=== PATIENT | female | born 1955 | race Caucasian/White ===

== ENCOUNTER 2021-01-29 07:09 | Day surgery (SDC) | payer OTHER ==
[2021-01-24 09:54] LABS: Absolute Lymphocytes (CBC) 2.8 K/uL (0.7-4.9); Hematocrit 39.5 % (36.0-45.0); Lymphocytes % 43.1 % (15.3-44.8); RBC Red Blood Cell Count 4.52 M/uL (3.86-4.86)
[2021-01-24 09:56] LABS: Urine Appearance CLOUDY (Clear); Urine Bilirubin NEGATIVE (Negative); Urine Blood TRACE (Negative); Urine Color YELLOW (Yellow); Urine Glucose NEGATIVE (Negative); Urine Protein NEGATIVE (Negative); Urine Urobilinogen 0.2 mg/dL (0.2-1.0)
[2021-01-24 09:58] LABS: Protime INR 1.06
[2021-01-24 10:07] LABS: Potassium 3.9 mmol/L (3.5-5.1)
[2021-01-24 10:07] LABS: Urine Microscopic Reflex ORDER UMIC
[2021-01-24 10:30] LABS: Urine Bacteria >50 /HPF (<20); Urine Mucus LIGHT /HPF (NONE SEEN); Urine RBC <5 /HPF (NONE SEEN)
[2021-01-29] MEDS ORDERED: LIDOCAINE 1% W/EPI 1:100,000 MDV 20 ML VIAL ONE (07:37)
[2021-01-29] MEDS ORDERED: NA CHLORIDE 0.9% 100 ML IV ONE (07:37)
[2021-01-29] MEDS ORDERED: Ringers Lactate 1,000 ML IV ONE ×2 (07:39→10:51)
[2021-01-29] MEDS ORDERED: SCOPOLAMINE HYDROBROMIDE PATCH TD ONE (07:42)
[2021-01-29] MEDS ORDERED: ROCURONIUM 50 MG/5 ML VIAL IV ONE (07:58)
[2021-01-29] MEDS ORDERED: dexAMETHasone 10 MG/ML VIAL ONE (07:58)
[2021-01-29] MEDS ORDERED: propofoL 200 MG/20 ML VIAL IV ONE (07:58)
[2021-01-29] MEDS ORDERED: FENTANYL CITR 100 MCG/2 ML ONE ×3 (07:58→15:15)
[2021-01-29] MEDS ORDERED: MIDAZOLAM HCL 2 MG/2 ML INJ ONE (07:59)
[2021-01-29] MEDS ORDERED: LIDOCAINE 2% MPF 5 ML VIAL ONE (07:59)
[2021-01-29] MEDS ORDERED: ONDANSETRON 4 MG/2 ML VIAL ONE (07:59)
[2021-01-29] MEDS ORDERED: KETOROLAC 30 MG/ML INJ ONE (07:59)
[2021-01-29] MEDS: CEFAZOLIN/SWI 2gm 2 GM/20 ML SYR ONE ×2 (08:19→08:36)
[2021-01-29] MEDS ORDERED: CELECOXIB 100 MG CAPSULE ONE (08:26)
[2021-01-29] MEDS ORDERED: ACETAMINOPHEN 500 MG TAB ONE (08:26)
[2021-01-29] MEDS: BUPIVACAINE 0.25% PF 30 ML VIAL ONE ×2 (08:36→09:12)
[2021-01-29] MEDS ORDERED: NS 0.9% VIAL 10 ML ONE ×2 (10:03→10:06)
[2021-01-29] MEDS ORDERED: VECURONIUM 10 MG/VIAL IV ONE (10:03)
[2021-01-29] MEDS ORDERED: CEFAZOLIN SODIUM 1 GM/VIAL ONE ×3 (10:06→13:43)
[2021-01-29] MEDS: VASOPRESSIN 20 UNIT/ML VIAL ONE ×2 (12:33→14:00)
[2021-01-29] MEDS ORDERED: PROMETHAZINE INJ 25 MG/ML AMP IV PRN (15:18)
[2021-01-29] MEDS ORDERED: MORPHINE 2 MG/ML SYR IV PRN (15:18)
--- NOTE | 2021-01-29 15:31 | P.BOP ---
Preoperative diagnosis: stage 3 anterior wall prolapse, uterine prolapse, post wall defect Postoperative diagnosis: occult MARY Primary procedure: TLH BSO Laparoscopy Sacralcolpopexy KAL posterior repair TVT- O Hand Singer: Kelly young Estimated blood loss: min Specimen: uterus tubes and ovaries Findings: 0/+2/0/5/mod/7/-1/-1/-3, sigmoid and omental adhesions Anesthesia: General Complications: None Drain(s): Urinary catheter Implants: Upsylon Y mesh, TVT-O Transferred to: Recovery Room Condition: Good
[2021-01-29] MEDS ORDERED: GLYCOPYRROLATE 0.2 MG/ML SYR ONE (15:36)
[2021-01-29] MEDS ORDERED: NEOSTIGMINE 1 MG/ML -5 ML ONE (15:40)
[2021-01-29] MEDS: Ringers Lactate 1,000 ML IV SCH (18:00)
[2021-01-29 18:02] VITALS: O2SAT 98
[2021-01-30] MEDS: Ringers Lactate 1,000 ML IV SCH ×2 (02:00→08:00)
[2021-01-30] MEDS: HYDROCODONE/APAP 5/325 MG TAB PO PRN ×2 (06:10→11:22)
[2021-01-30 12:20] VITALS: BP 126/75; TEMP 98.6
--- NOTE | 2021-02-18 10:06 | OP ---
Date of Procedure: 01/29/2021 Surgeon: Rachael Mills MD Shelter Advocate: For the hysterectomy, the transportation assistant was Aurora Shirley. For the sacrocolpopexy, the assi stant was Dr. Cristhian Mendoza. Intraoperative consultations for Dr. Mendoza. Please refer to his note. Preoperative Diagnoses: Stage III anterior wall prolapse, uterine prolapse, and posterior wall defec ts, occult stress urinary incontinence. Postoperative Diagnoses: Stage III anterior wall prolapse, uterine prolapse, and posterior wall defe cts, occult stress urinary incontinence. Procedures Performed: Total laparoscopic hysterectomy, bilateral salpingo-oophorectomy, laparoscopic sacrocolpopexy using a Y-Mesh, lysis of adhesions which took about 20 minutes, posterior repair, TVT -O (mid urethral sling), cystoscopy. Estimated Blood Loss: Minimal. Specimens: Uterus, tubes, and ovaries. Anesthesia: General endotracheal. Complications: No complications. Drains: Garcia catheter. Implants: Upsylon Y-Mesh and TVT-O. Findings: Pop-Q was 0, +2, 0, 5, moderate 7, -1, -1, -3. There were significant sigmoid and omental adhesions that had to be taken with extra time spent, which is the 20 minutes. Disposition: The patient was transferred to the recovery room in good condition. Procedure In Detail: After informed consent was verified, after the patient was understood all of he r alternatives for treatment including pessary, vaginal repair and connective tissue, vaginal repair with biologic graft augmentation and a mesh augmented laparoscopic repair. She understood both the b enefits and risks and complications, recovery and long-term recurrences. She chose to have a procedu re that had at least recurrence in the longer term fully understanding the difference between the charity geries. She was consented and brought to the OR. 2 g of Ancef were given. She was taken back to [facility] OR after consenting. She was placed in a supine fashion on the operating table. General anesthesia was given. She was pl aced in dorsal lithotomy position. Arms were tucked by the side. Positioning was checked and SCDs w ere started and time-out. Pelvic exam under anesthesia was performed and is as dictated on the Pop-Q above. She needed a poste rior repair as well. Abdomen, vulva, vagina, and perineum prepped and draped in a sterile fashion. Garcia was placed to dr waldron the bladder and a large VCare was introduced into the uterus and fixed in place. This area was t hen draped. A Garcia was connected for retrograde filling. A 1 cm infraumbilical incision was made with the use of a scalpel. Fascia was incised, tagged with 0 Vicryl sutures. Peritoneum entered sharply. S-retractors were placed and Kamille introduced. After adequate insufflation, site of entry was checked and was unremarkable. Upper abdominal surface was unremarkable as well. However, omental adhesions were present to the anterior abdominal wall to the sidewall of the lower midline. Sigmoid adhesions were present to the left lateral wall, left tube an d ovary, and the posterior cul-de-sac and the peritoneum. A 5 and 8 left lower quadrant and right lo wer quadrant ports were placed under direct vision. Then, LigaSure was used to take down the adhesio ns systematically with push-spread technique, cutting as well as bipolar cautery with cutting. Once all the adhesions were taken down, then I had a space to insert the tendon suprapubic port and all th e pelvic sidewalls were well visualized and the pelvic anatomy was visualized. After placement of 10 port, tag on the sigmoid colon was placed with the help of a 3-0 Monocryl stitc h and pulled up through the left upper quadrant using a Chaitanya-Miguel Angel needle. Hysterectomy was started taking opening up the left mesosalpinx. IP ligament was isolated, cut, and dissection was performed to take down the ovary as well as mesosalpinx and the round ligament, broad ligament. Vessels were exposed. The anterior broad ligament was opened up to raise the bladder flap . The bladder was dissected inferiorly and the vaginal cuff was then posteriorly taken down with are a of the posterior cuff. Uterosacrals were not visible and not worthy of attachment of the apex to t hem for good support. On the opposite side, the dissection was performed isolating the IP and taking it down. Mesosalpinx, tubes, ovary were all dissected away from the sidewall and round ligament was taken down. Broad lig ament was taken down to the level of the anterior bladder flap, which was completed posteriorly. The peritoneum was incised circumferentially anteriorly. The vessels were visualized and on the right s larry isolated. Vessels were taken down with the help of the LigaSure and the cardinal ligaments whate felipe was left of them, and then a similar dissection on the opposite side was performed to take down t he vessels and the cardinal ligaments. Then, circumferential colpotomy was performed with monopolar hook blade. The specimen was removed through the vagina with excellent hemostasis at all sides and n o anatomical distortion of the ureters or their course or any other anatomy. The vaginal cuff was closed with the help of 0 Vicryl stitch on both ends and 2-0 V-Loc used to close in 2 layers the vaginal epithelium, subepithelium and connective tissue and the connective tissue of the posterior vaginal wall and anterior including the peritoneum. Once this was closed fully in 2 l marino then dissection of the anterior wall was started. The bladder was held with 2 atraumatic graspers and dissected sharply to create the space between the bladder and vaginal wall without entering the vesicovaginal space. Once at least 3.5 cm of the ante rior vaginal wall was well dissected and exposed, then attention was directed posteriorly. Posterior dissection was performed by picking up the peritoneum leaving at least 1.5 cm of the perito da closure at the level of the vaginal cuff. Then, vaginal dissection was performed as well as the perirectal fat was dissected away from the posterior vaginal wall. Once this was dissected down at least 7.5 cm, then laterally the peritoneum was incised to carry the incision from the right lateral aspect of the sacrum. The sacral promontory was identified, the peritoneum picked up. Once this was incised with the help of LigaSure and scissors, then the autonomic nerves were found. They were very thick and slightly ad herent in this area, not easily moved over to the left. was clearly identified. Then, th e bifurcation of the iliacs was identified keeping away from the right iliac artery and dissection wa s performed with a knot between the nerve and the vessel. Space was created. Dr. Mendoza helped with this part of procedure. After dissecting the nerves and carefully preserving them and bringing them over to the opposite side, then the peritoneum was incised all the way to connect to the posterior di ssection staying in the center between the sigmoid and lateral wall. Then once adequate space was cr eated and anterior longitudinal ligament was identified, this dissection was left alone. Attention was directed to the fascia of the mesh. The mesh was fashioned appropriately leaving at le ast 8 cm posterior wall and through the posterior segment and 6 cm of the anterior segment, then went on to attach the posterior graft distally with 2 Prolene sutures on both ends and then in the center with 2-0 V-Loc and 2 V-Loc sutures were placed in the proximal part of the posterior segment to lay the mesh flap. Two interrupted sutures were made. Then, the mesh was folded up and brought to the sacrum and tensioned appropriately by removing the ma nipulator and making sure that there was no excessive tension. The mesh was laid flat and ProTack wa s placed, 3 pins in a row and then folded over and 3 more pins. Once all the 6 verified, the excess mesh was trimmed. Attention was directed to the anterior wall. Anterior wall was tensioned appropriately and attached distally with 2-0 Prolene sutures. Sutures we re first placed in the distal most lateral aspect of the dissection without going through the vaginal epithelium. Then, the mesh arm was laid on top and attached. The Prolene sutures passed through th is to attach. Once these were tied down, central 2-0 V-Loc was placed in the distal part of the mesh arms. The mesh was trimmed that was excess and then 2 V-Loc sutures were placed at the proximal par t of the anterior wall as well to keep the mesh flat and positioned. There was at least a cm to cm a nd half of the space between the vaginal cuff and the crotch of the Y-Mesh. Once this was all completed, peritoneal closure was done with the help of 2-0 V-Loc in a continuous r unning locked fashion going from the sacrum all the way down to the bladder and to the right and then starting on the left and coming to the center and finishing it off. Thorough irrigation and suction were performed. No evidence of any electrical, mechanical, or therma l injury to the ureters. There was excellent hemostasis. No evidence of injury to the bowel either or the bladder. All the trocars were pulled out, released the bowel, injected the site with 0.25% Ma rcaine at entry and exit. Fascia was closed at the umbilicus and suprapubic area with 0 Vicryl sutur es and 4-0 Vicryl sutures for all skin closures. The patient was placed in Trendelenburg and was taken sling. Then, mid urethral, vaginal epithelium was picked up with the help of Allis clamps, injected with dilute vasopressin. A 1 cm inc ision was made in the mid urethral area. Dissection was carried to the ipsilateral obturator space h ugging the inferior pubic ramus at a 45-degree angle to the horizontal and vertical planes. Once thi s space was opened up with pulling opening the tongs and similar dissection was performed on both sides, then went on to place the wing guide and pass the plastic dilator with spike in it int o the obturator space turned around, hugging the inferior pubic ramus with dilator and the wing guide out and exited at 1 cm lateral to the groin fold and 2 cm above the line drawn at the level of the e xternal meatus avoiding the adductor tendon. Similar spike was passed on the opposite side. There w as excellent tensioning using Metzenbaum and this was done in the suburethral area. Then, the plasti c sheaths and wing guides were all taken down. Mesh was cut, flushed with the skin, and vaginal epit helium closed after irrigation with antibiotic solution using a 3-0 Vicryl continuous running locked stitch and skin glue at both incisions on the groins. Attention directed to the posterior repair. This was done after injecting dilute vasopressin into th e distal 1/3 of the posterior wall. The mesh could be palpated about it. A adela-shaped incision was made in the vaginal epithelium, excised the vaginal epithelium. Connective tissue was well visua lized. This was dissected away from the vaginal epithelial flaps. After the rectovaginal septum was visualized here, there was a defect connecting it to the perineal body, so went on to place 2 suture s on the perineal body with 2-0 Vicryl interrupted and 2-0 PDS was taken and the tissue was plicated from side to side, reattaching the proximal tissue to the tissue attached to the mesh and then coming down all the way and reattaching into the perineal body. The vaginal epithelial closure was perform ed after very minimal trimming with the help of a 2-0 Vicryl suture in a continuous running horizonta l mattress fashion and the knot was placed right inside the vestibule. Subcutaneous 3-0 Vicryl sutur es at the very distal end were placed x2 for the closure. There was excellent support and reattachme nt of the entire posterior wall to the perineal body and genital hiatus was down to 3.5 cm, did not h ave any narrowing, was examined by open stretch fingers as leaving the patency adequate for future in tercourse. Rectal exam was performed. No evidence of any trauma or foreign body here. Cystoscopy was performed and no evidence of any trauma or foreign body to the bladder or the ureters. Strong jets of urine from both sides. No evidence of the mesh in the bladder. Bladder was drained . Garcia was replaced. Instrument, needle, and sponge counts were correct at the end of the case. E BL was minimal. The patient was recovered and taken to PACU in stable condition. PEPE/ANDREY Voice ID: [id number] Report ID: [id number]
== END 2021-01-30 12:19 | disposition home or self-care (01) ==
LOC: OR 07:09 → 2ND-WC 15:19 → OR 01-30 12:19
PROVIDERS: ATTEND Obstetrics & Gynecology
PROC: 0UT24ZZ Resection of Bilateral Ovaries, Percutaneous Endoscopic Approach (ICD-10-PCS; 2021-01-29)
PROC: 0UT74ZZ Resection of Bilateral Fallopian Tubes, Percutaneous Endoscopic Approach (ICD-10-PCS; 2021-01-29)
PROC: 0USG4ZZ Reposition Vagina, Percutaneous Endoscopic Approach (ICD-10-PCS; 2021-01-29)
PROC: 0TSD4ZZ Reposition Urethra, Percutaneous Endoscopic Approach (ICD-10-PCS; 2021-01-29)
PROC: 0DNU4ZZ Release Omentum, Percutaneous Endoscopic Approach (ICD-10-PCS; 2021-01-29)
PROC: 0UN64ZZ Release Left Fallopian Tube, Percutaneous Endoscopic Approach (ICD-10-PCS; 2021-01-29)
PROC: 0UN14ZZ Release Left Ovary, Percutaneous Endoscopic Approach (ICD-10-PCS; 2021-01-29)
PROC: 0DNN4ZZ Release Sigmoid Colon, Percutaneous Endoscopic Approach (ICD-10-PCS; 2021-01-29)
PROC: 0UT94ZZ Resection of Uterus, Percutaneous Endoscopic Approach (ICD-10-PCS; principal; 2021-01-29 08:15)
DX: N81.2 Incomplete uterovaginal prolapse (principal); N39.3 Stress incontinence (female) (male); N95.2 Postmenopausal atrophic vaginitis; E03.9 Hypothyroidism, unspecified; I10 Essential (primary) hypertension; E78.00 Pure hypercholesterolemia, unspecified; Z20.822 Contact with and (suspected) exposure to COVID-19; K66.0 Peritoneal adhesions (postprocedural) (postinfection)
CPT/HCPCS: 87088; 85025; 87086; 80048; 36415; 86900; 86850; 85610; 86901; 88305; 85730; 87077; 87186; 58571; 57425; 57288; 49329; 58660; 44180; U0003; J2704; J2250; J3010 ×3; J1100; J2710; J0690 ×4; J7120 ×4; J2405; 81003; 81015; 88307

== ENCOUNTER → 2023-05-05 | Emergency (ER) | payer OTHER ==
[~2023-05-05] MED LIST: DICYCLOMINE HCL 10 MG CAP ONE; FAMOTIDINE 20 MG/2 ML VIAL IV ONE; KETOROLAC 30 MG/ML INJ ONE; ONDANSETRON 4 MG/2 ML VIAL ONE
[2023-05-05 19:35] LABS: Absolute Lymphocytes (CBC) 1.5 K/uL (0.7-4.9); Hematocrit 36.8 % (36.0-45.0); Lymphocytes % 12.2 % (15.3-44.8); MCV 90.1 fL (80-100); MPV 7.5 fL (7.6-11.3); Platelets 408 thou/uL (152-406); RBC Red Blood Cell Count 4.09 M/uL (3.86-4.86)
--- NOTE | 2023-05-05 19:40 | RAD REPORT ---
EXAM DESCRIPTION: US - Abdomen Exam Limited - 05/05/2023 7:31 pm CLINICAL HISTORY: ABD PAIN COMPARISON: No comparisons FINDINGS: The gallbladder demonstrates shadowing gallstones. Gallbladder appears distended. No peric holecystic fluid or gallbladder wall thickening. The common bile duct is normal measuring 6 mm. The liver demonstrates no findings of intrahepatic biliary dilatation. IMPRESSION: Cholelithiasis with gallbladder distension.
[2023-05-05 19:44] LABS: Albumin 3.8 g/dL (3.4-5.0); Bilirubin Total 0.5 mg/dL (0.2-1.0); Potassium 3.8 mEq/L (3.5-5.1); Protein, Total 8.4 g/dL (6.4-8.2)
--- NOTE | 2023-05-05 20:46 | ER ---
Nurse's Notes [facility] Name: Gloria Holloway Age: 67 yrs Sex: Female : 1955 Arrival Date: 05/05/2023 Time: 18:49 Bed 13 Private MD: Diagnosis: Other cholelithiasis without obstruction Presentation: 05/05 19:02 Chief complaint: Patient states: RUQ ABD PAIN STARTED YESTERDAY. Coronavirus screen: At [facility] this time, the client does not indicate any symptoms associated with coronavirus-19. Ebola Screen: No symptoms or risks identified at this time. Initial Sepsis Screen: Does the patient meet any 2 criteria? No. Patient's initial sepsis screen is negative. Does the patient have a suspected source of infection? No. Patient's initial sepsis screen is negative. Risk Assessment: Do you want to hurt yourself or someone else? Patient reports no desire to harm self or others. Onset of symptoms was May 04, 2023. 19:02 Method Of Arrival: Ambulatory [facility] 19:02 Acuity: ELISABETH 3 jj7 19:02 Note TYLENOL 1800. jj7 Triage Assessment: 19:05 General: Appears in no apparent distress. uncomfortable, Behavior is calm, cooperative, jj7 appropriate for age. Pain: Complains of pain in right upper quadrant. GI: Reports upper abdominal pain. Historical: - Allergies: 19:05 No Known Allergies; jj7 - PMHx: 19:05 Hypertensive disorder; Hypothyroidism; HIGH CHOLESTEROL; jj7 - Immunization history:: Adult Immunizations not up to date. - Social history:: Smoking status: Patient denies any tobacco usage or history of. Patient/guardian denies using alcohol, street drugs. Screenin:06 [facility] ED Fall Risk Assessment (Adult) History of falling in the last 3 months, jj7 including since admission No falls in past 3 months (0 pts) Confusion or Disorientation No (0 pts) Intoxicated or Sedated No (0 pts) Impaired Gait No (0 pts) Mobility Assist Device Used No (0 pt) Altered Elimination No (0 pt) Score/Fall Risk Level 0 - 2 = Low Risk Oriented to surroundings, Maintained a safe environment, Educated pt \T\ family on fall prevention, incl call for assistance when getting out of bed. 19:29 Abuse screen: Denies threats or abuse. cp4 19:29 Nutritional screening: No deficits noted. Tuberculosis screening: No symptoms or risk cp4 factors identified. Assessment: 19:29 General: Appears in no apparent distress. Behavior is calm, cooperative, appropriate cp4 for age. Pain: Complains of pain in abdomen. Vital Signs: 19:02 BP 146 / 89; Pulse 94; Resp 17; Temp 98.1; Pulse Ox 100% ; Weight 76.2 kg; Height 5 ft. jj7 3 in. ; Pain 8/10; 20:59 BP 139 / 79; Pulse 85; Resp 16; Pulse Ox 99% ; as6 19:02 Body Mass Index 29.76 (76.20 kg, 160.02 cm) jj7 19:02 Pain Scale: Adult j7 ED Course: 18:57 Patient arrived in ED. kj1 18:59 Letty Rice FNP-C [facility]. kb 18:59 Shine Pineda MD is Attending Physician. kb 19:04 Triage completed. jj7 19:05 Arm band placed on left wrist. jj7 19:09 Triny Shell is Primary Nurse. cp4 19:29 Bed in low position. Call light in reach. Side rails up X 1. cp4 19:29 CBC with Diff Sent. cp4 19:29 CMP Sent. cp4 19:29 Lipase Sent. cp4 19:32 Abdomen Limited US In Process Unspecified. EDMS 20:59 No provider procedures requiring assistance completed. IV discontinued, intact, as6 bleeding controlled, No redness/swelling at site. Pressure dressing applied. Administered Medications: 20:36 Drug: Dicyclomine PO 20 mg PO once Route: PO; cp4 21:00 Follow up: Response: No adverse reaction as6 20:37 Drug: Famotidine IVP 20 mg IVP once; dilute with 10 mL 0.9% NaCl; give over 2 minutes cp4 Route: IVP; Site: right antecubital; 21:01 Follow up: Response: No adverse reaction as6 20:37 Drug: Ketorolac IVP 15 mg IVP once Route: IVP; Site: right antecubital; cp4 21:01 Follow up: Response: No adverse reaction as6 20:37 Drug: Ondansetron IVP 4 mg IVP once; over 2 minutes Route: IVP; Site: right antecubital;cp4 21:00 Follow up: Response: No adverse reaction as6 Medication: 19:29 VIS not applicable for this client. cp4 Outcome: 20:45 Discharge ordered by . kb 20:59 Discharged to home ambulatory, as6 20:59 Condition: stable 20:59 Discharge instructions given to patient, Instructed on discharge instructions, follow up and referral plans. medication usage, Demonstrated understanding of instructions, follow-up care, medications, Prescriptions given X 2, 21:01 Patient left the ED. as6 Signatures: Dispatcher [employer] EDMS Letty Rice, LAZARUS-C METAL SANDER-Lois Naidu kj1 Mario Bergeron RN RN as6 Lilia Little RN RN jjTriny Perez cp4
--- NOTE | 2023-05-05 20:46 | EDPHYS ---
Physician Documentation [facility] Name: Gloria Holloway Age: 67 yrs Sex: Female : 1955 Arrival Date: 05/05/2023 Time: 18:49 Bed 13 Private MD: ED Physician Shine Pineda HPI: 05/05 20:17 This 67 yrs old Female presents to ER via Ambulatory with complaints of Abdominal Pain. kb 20:17 Patient is a 67-year-old female who presents for right upper quadrant pain that started kb yesterday. States she has had a decreased appetite with nausea and a few episodes of vomiting. Denies fever, diarrhea.. Historical: - Allergies: 19:05 No Known Allergies; jj7 - PMHx: 19:05 Hypertensive disorder; Hypothyroidism; HIGH CHOLESTEROL; jj7 - Immunization history:: Adult Immunizations not up to date. - Social history:: Smoking status: Patient denies any tobacco usage or history of. Patient/guardian denies using alcohol, street drugs. ROS: 20:17 Constitutional: Negative for fever, chills, and weight loss, kb 20:17 Abdomen/GI: Positive for abdominal pain, nausea, 20:17 All other systems are negative, Exam: 20:17 Constitutional: This is a well developed, well nourished patient who is awake, alert, kb and in no acute distress. Head/Face: Normocephalic, atraumatic. ENT: Moist Mucous membranes Cardiovascular: Regular rate Respiratory: Respirations even and unlabored. No increased work of breathing. Talking in full sentences Abdomen/GI: Soft, non-tender. No distention Skin: Warm, dry with normal turgor. Normal color. MS/ Extremity: Pulses equal, no cyanosis. Neurovascular intact. Full, normal range of motion. Neuro: Awake and alert, GCS 15, oriented to person, place, time, and situation. Moves all extremities. Normal gait. Vital Signs: 19:02 BP 146 / 89; Pulse 94; Resp 17; Temp 98.1; Pulse Ox 100% ; Weight 76.2 kg; Height 5 ft. jj7 3 in. ; Pain 8/10; 20:59 BP 139 / 79; Pulse 85; Resp 16; Pulse Ox 99% ; as6 19:02 Body Mass Index 29.76 (76.20 kg, 160.02 cm) j7 19:02 Pain Scale: Adult jj7 MDM: 18:59 Patient medically screened. kb 20:17 Differential diagnosis: cholecystitis, Cholelithiasis, gastritis, gastroesophageal kb reflux disease. Data reviewed: vital signs, nurses notes. Counseling: I had a detailed discussion with the patient and/or guardian regarding the historical points, exam findings, and any diagnostic results supporting the discharge/admit diagnosis, lab results, radiology results, the need for outpatient follow up, a family practitioner, a general surgeon, a visiting housekeeper, to return to the emergency department if symptoms worsen or persist or if there are any questions or concerns that arise at home. 05/05 19:03 Order name: CBC with Diff; Complete Time: 19:40 kb 05/05 19:03 Order name: CMP; Complete Time: 19:51 kb 05/05 19:03 Order name: Lipase; Complete Time: 19:51 kb 05/05 19:03 Order name: Abdomen Limited US; Complete Time: 19:41 kb 05/05 19:03 Order name: IV Saline Lock; Complete Time: 19:29 kb 05/05 19:03 Order name: Labs collected and sent; Complete Time: 19:29 kb 05/05 20:18 Order name: PO challenge; Complete Time: 20:36 kb Administered Medications: 20:36 Drug: Dicyclomine PO 20 mg PO once Route: PO; cp4 21:00 Follow up: Response: No adverse reaction as6 20:37 Drug: Famotidine IVP 20 mg IVP once; dilute with 10 mL 0.9% NaCl; give over 2 minutes cp4 Route: IVP; Site: right antecubital; 21:01 Follow up: Response: No adverse reaction as6 20:37 Drug: Ketorolac IVP 15 mg IVP once Route: IVP; Site: right antecubital; cp4 21:01 Follow up: Response: No adverse reaction as6 20:37 Drug: Ondansetron IVP 4 mg IVP once; over 2 minutes Route: IVP; Site: right antecubital;cp4 21:00 Follow up: Response: No adverse reaction as6 Disposition Summary: 05/05/23 20:45 Discharge Ordered Notes: Location: Home kb Condition: Stable kb Diagnosis - Other cholelithiasis without obstruction kb Followup: kb - With: Emergency Department - When: As needed - Reason: Worsening of condition Followup: kb - With: Private Physician - When: 2 - 3 days - Reason: Recheck today's complaints, Continuance of care, Re-evaluation by your physician Discharge Instructions: - Discharge Summary Sheet kb - Cholelithiasis, [id number] kb Forms: - Medication Reconciliation Form kb - Thank You Letter kb - Antibiotic Education kb - Prescription Opioid Use kb - Patient Portal Instructions kb - Leadership Thank You Letter kb Prescriptions: - Zofran 4 mg Oral tablet - take 1 tablet ORAL route every 6 hours As needed; 12 tablet; Refills: 0, kb Product Selection Permitted - dicyclomine 20 mg Oral tablet - take 1 tablet ORAL route 4 times per day As needed; 20 tablet; Refills: 0, kb Product Selection Permitted Signatures: Dispatcher [employer] Letty Walters, SUSANC Lilia Gamboa RN RN jj7 Triny Shell cp4 Mario Bergeron RN as6
[2023-05-05 21:33] VITALS: BP 139/79; TEMP 98.1; O2SAT 99
== END ==
LOC: ER 18:49
DX: K80.80 Other cholelithiasis without obstruction (principal)
CPT/HCPCS: 85025; 36415; 83690; 80053; 76705; 96375; 96374; 99284; J2405

== ENCOUNTER 2023-05-13 06:59 | Observation (INO) | payer OTHER ==
--- NOTE | 2023-05-12 16:42 | RAD REPORT ---
EXAM DESCRIPTION: RAD - Chest Pa And Lat (2 Views) - 05/12/2023 4:36 pm CLINICAL HISTORY: PRE OP LAP AMBER Chest pain. COMPARISON: No comparisons FINDINGS: The lungs are clear. The heart is normal in size. No displaced fractures. IMPRESSION: No acute or concerning finding suspected.
[2023-05-12 17:10] LABS: ALT/SGPT 89 U/L (13-56); AST/SGOT 25 U/L (15-37); Albumin 2.9 g/dL (3.4-5.0); Alkaline Phosphatase 137 U/L (45-117); BUN Blood Urea Nitrogen 17 mg/dL (7-18); Bicarbonate 24 mEq/L (21-32); Bilirubin Total 0.2 mg/dL (0.2-1.0); Glomerular Filtration Rate 61 ml/min (=/>90); Glucose Level 91 mg/dL (74-106); Lipase 44 U/L (13-75); Potassium 3.2 mEq/L (3.5-5.1); Protein, Total 7.9 g/dL (6.4-8.2); Sodium Level 135 mEq/L (136-145)
[2023-05-12 17:13] LABS: Bilirubin Direct < 0.1 mg/dL (0-0.2); Bilirubin Indirect, Calculated ND mg/dL (0.2-0.8)
[2023-05-13] MEDS ORDERED: dexAMETHasone 10 MG/ML VIAL ONE (07:21)
[2023-05-13] MEDS ORDERED: KETOROLAC 30 MG/ML INJ ONE (07:21)
[2023-05-13] MEDS ORDERED: propofoL 200 MG/20 ML VIAL IV ONE (07:21)
[2023-05-13] MEDS ORDERED: ONDANSETRON 4 MG/2 ML VIAL ONE (07:21)
[2023-05-13] MEDS ORDERED: ROCURONIUM 50 MG/5 ML VIAL IV ONE (07:21)
[2023-05-13] MEDS ORDERED: FENTANYL CITR 100 MCG/2 ML ONE (07:21)
[2023-05-13] MEDS ORDERED: MIDAZOLAM HCL 2 MG/2 ML INJ ONE (07:22)
[2023-05-13] MEDS ORDERED: LIDOCAINE 2% MPF 5 ML VIAL ONE (07:22)
[2023-05-13] MEDS ORDERED: CEFOXITIN SODIUM 1 GM/VIAL ONE (07:46)
[2023-05-13] MEDS ORDERED: Ringers Lactate 1,000 ML IV ONE ×2 (07:47→09:33)
[2023-05-13] MEDS ORDERED: NS 0.9% VIAL 10 ML ONE ×2 (08:30→09:07)
[2023-05-13] MEDS ORDERED: VECURONIUM 10 MG/VIAL IV ONE (09:07)
[2023-05-13] MEDS ORDERED: GLYCOPYRROLATE 0.2 MG/ML SYR ONE (10:13)
[2023-05-13] MEDS ORDERED: NEOSTIGMINE 1 MG/ML -10 ML VIAL ONE (10:13)
--- NOTE | 2023-05-13 10:40 | P.BOP ---
Preoperative diagnosis: intractable RUQ abd pain, acute cholecystitis, symptomatic cholelithiasis Postoperative diagnosis: same plus suppurative cholecystitis, intrabdominal adhesions Primary procedure: Laparoscopic cholecystectomy Secondary procedure: Laparoscopic lysis of adhesions Estimated blood loss: <75cc Specimen: GB, culture Findings: suppurative cholecystitis Anesthesia: General Complications: None Drain(s): LIZ drain Transferred to: Recovery Room Condition: Good
[2023-05-13] MEDS ORDERED: SODIUM CHLORIDE 0.9% 10ML INJ IV PRN (10:53)
[2023-05-13] MEDS: HYDROMORPHONE HCL 1 MG/ML INJ ONE ×4 (10:53→11:24)
[2023-05-13] MEDS ORDERED: ONDANSETRON 4 MG/2 ML VIAL IV PRN (10:53)
[2023-05-13] MEDS: FENTANYL CITR 100 MCG/2 ML ONE ×2 (12:39→12:44)
[2023-05-13] MEDS: NA CHLORIDE 0.9% 1,000 ML IV SCH ×2 (13:06→21:02)
[2023-05-13] MEDS: CEFOXITIN 1 GM in NA CHLORIDE 0.9% 50 ML IVPB SCH ×2 (13:08→17:33)
[2023-05-13] MEDS: HYDROMORPHONE HCL 1 MG/ML INJ IV PRN ×3 (13:35→21:00)
[2023-05-13] MEDS: METRONIDAZOLE 500mg IVPB 500 MG/100 ML BAG IV SCH ×2 (13:41→18:15)
[2023-05-13 13:48] VITALS: BMI 29.2
[2023-05-14] MEDS: METRONIDAZOLE 500mg IVPB 500 MG/100 ML BAG IV SCH (00:13)
[2023-05-14] MEDS: CEFOXITIN 1 GM in NA CHLORIDE 0.9% 50 ML IVPB SCH ×2 (00:13→16:26)
[2023-05-14] MEDS: HYDROMORPHONE HCL 1 MG/ML INJ IV PRN ×2 (03:53→08:35)
[2023-05-14] MEDS: NA CHLORIDE 0.9% 1,000 ML IV SCH ×3 (07:00→16:23)
[2023-05-14 08:28] LABS: Absolute Lymphocytes (CBC) 3.2 K/uL (0.7-4.9); Hematocrit 28.6 % (36.0-45.0); Lymphocytes % 27.1 % (15.3-44.8); MCV 90.4 fL (80-100); MPV 7.4 fL (7.6-11.3); Platelets 506 thou/uL (152-406); RBC Red Blood Cell Count 3.16 M/uL (3.86-4.86)
[2023-05-14] MEDS: PANTOPRAZOLE 40 MG INJ IVP SCH (08:35)
[2023-05-14 08:46] LABS: Potassium 4.1 mEq/L (3.5-5.1)
[2023-05-14] MEDS: HYDROCODONE/APAP 5/325 MG TAB PO PRN (12:46)
--- NOTE | 2023-05-14 13:28 | EKG ---
Test Date: 2023-05-12 Test Time: 17:14:04 Ela Teacher: MATT MEASUREMENT RESULTS: Intervals: Rate: 75 DC: 156 QRSD: 88 QT: 384 QTc: 428 [place]: P: 54 DC: 156 QRS: 15 T: 36 INTERPRETIVE STATEMENTS: Normal sinus rhythm Normal ECG No previous ECG available for comparison Electronically Signed On 05-14-23 13:23:11 [employer] UTILITY WORKER by Terry Smallwood
[2023-05-14] MEDS: MORPHINE 2 MG/ML SYR IV PRN ×2 (15:45→19:02)
[2023-05-14] MEDS ORDERED: AMLODIPINE 10 MG TAB PO SCH (21:00)
[2023-05-14] MEDS ORDERED: ATORVASTATIN 10 MG TAB PO SCH (21:00)
[2023-05-15] MEDS: CEFOXITIN 1 GM in NA CHLORIDE 0.9% 50 ML IVPB SCH ×2 (00:01→09:25)
[2023-05-15] MEDS: HYDROCODONE/APAP 5/325 MG TAB PO PRN (00:01)
[2023-05-15] MEDS: NA CHLORIDE 0.9% 1,000 ML IV SCH ×2 (02:20→13:35)
[2023-05-15] MEDS ORDERED: LEVOTHYROXINE SOD 0.05 MG TABLET PO SCH (06:30)
[2023-05-15] MEDS: PANTOPRAZOLE 40 MG INJ IVP SCH (09:26)
[2023-05-15 09:44] VITALS: O2SAT 91
[2023-05-15 12:21] VITALS: BP 118/69; TEMP 98.1
--- NOTE | 2023-05-15 15:30 | P.PN ---
Subjective Date of Service: 05/14/23 Subjective: Improving (no tolerating full diet yet, no flatus, no BM, still requiring IV pain meds) Review of Systems General: Malaise, As per HPI ENT: Unremarkable Respiratory: Unremarkable Cardiovascular: Unremarkable Gastrointestinal: Nausea, Abdominal Pain, Distention, As per HPI Genitourinary: Unremarkable Musculoskeletal: Unremarkable Integumentary: Unremarkable Physical Examination - Vital Signs Temperature: 98.1 F Blood Pressure: 118/69 Pulse: 84 Respirations: 16 Pulse Ox (%): 91 - Physical Exam General: Alert, In no apparent distress, Oriented x3, Cooperative HEENT: PERRLA, EOMI Neck: Supple Respiratory: Normal air movement Cardiovascular: No edema Gastrointestinal: Other (LIZ serosaguineous), Distended, Tenderness Musculoskeletal: No erythema, No tenderness, No warmth Integumentary: No rashes, No erythema, No warmth, No cyanosis Neurological: Normal speech - Studies Microbiology Data (last 24 hrs): 05/13/23 09:54 Body Fluid - Body Fluid Gram Stain - Final 05/13/23 09:54 Other - Body Fluid Gram Stain - Final Assessment And Plan - Plan advance diet as tolerated OOB ambulate ( she is already walking laps) Incentive spirometry Cont IV abx LIZ record We will try to wean her to PO pain meds as soon a possible
--- NOTE | 2023-05-15 15:32 | P.DS ---
Admission Date: 05/13/23 Discharge Date: 05/15/23 Disposition: ROUTINE DISCHARGE Discharge Condition: GOOD - Problems (1) Acute suppurative cholecystitis Status: Acute (2) Intra-abdominal adhesions Status: Acute Hospital Course: unremarkable Vital Signs/Physical Exam: Temp Pulse Resp BP Pulse Ox 98.1 F 84 16 118/69 91 05/15/23 15:29 05/15/23 15:29 05/15/23 15:29 05/15/23 15:29 05/15/23 15:29 General: Alert, In no apparent distress, Oriented x3, Cooperative HEENT: PERRLA, EOMI Neck: Supple Respiratory: Normal air movement Cardiovascular: No edema, Normal pulses, Regular rate/rhythm Gastrointestinal: Soft and benign, Other (LIZ serous) Musculoskeletal: No erythema, No tenderness, No warmth Integumentary: No rashes, No breakdown, No erythema, No warmth, No cyanosis Neurological: Normal gait, Normal speech Laboratory Data at Discharge: WBC 11.90 thou/uL (4.3-10.9) H 05/14/23 08:00 Hgb 9.6 g/dL (12.0-15.0) L 05/14/23 08:00 Hct 28.6 % (36.0-45.0) L 05/14/23 08:00 Plt Count 506 thou/uL (152-406) H 05/14/23 08:00 Sodium 138 mEq/L (136-145) 05/14/23 08:00 Potassium 4.1 mEq/L (3.5-5.1) 05/14/23 08:00 BUN 12 mg/dL (7-18) 05/14/23 08:00 Creatinine 0.89 mg/dL (0.55-1.02) 05/14/23 08:00 Glucose 91 mg/dL (74-106) 05/14/23 08:00 Total Bilirubin 0.2 mg/dL (0.2-1.0) 05/12/23 16:27 AST 25 U/L (15-37) 05/12/23 16:27 ALT 89 U/L (13-56) H 05/12/23 16:27 Alkaline Phosphatase 137 U/L (45-117) H 05/12/23 16:27 Lipase 44 U/L (13-75) 05/12/23 16:27 Home Medications: Amlodipine Besylate 10 mg PO BEDTIME 01/24/21 Levothyroxine [Synthroid] 55 mcg PO [id number] 01/24/21 Simvastatin 20 mg PO DAILY 01/24/21 Aspirin [Aspirin EC 81 MG] 81 mg PO DAILY 05/13/23 Physician Discharge Instructions: LIZ to bulb suction. monitor and document output. Make take showers with dressing off Diet: AHA Activity: No lifting more than 10 lbs Followup: Seferino Truong MD [ACTIVE - CAN ADMIT] - 1 Week Theresa Uriostegui MD [Primary Care Provider] -
--- NOTE | 2023-05-16 01:36 | OP ---
Date of Procedure: 05/13/2023 Surgeon: Seferino Truong MD Preoperative Diagnoses: Intractable right upper quadrant abdominal pain, acute cholecystitis, sympto matic cholelithiasis. Postoperative Diagnoses: Intractable right upper quadrant abdominal pain, acute cholecystitis, sympt omatic cholelithiasis, suppurative cholecystitis, intra-abdominal adhesions. Procedure: Laparoscopic cholecystectomy, laparoscopic lysis of adhesions. Estimated Blood Loss: Less than 75 cc. Specimen: Gallbladder and fluid culture. Findings: Suppurative cholecystitis with severe acute cholecystitis. Anesthesia: General plus local. Drains: LIZ #10. Indication: This is a case of a 67-year-old patient who comes to us with abdominal pain. She was se en about 48 hours ago in the ER, but she was discharged home. She states she went home, the pain got worse, comes to my office with severe pain and then immediately I scheduled for surgical interventio n. She was started on antibiotics when I saw her in the office and then admitted her today for an ur gent laparoscopic possible open cholecystectomy. The benefits, alternatives, and risks of that proce dure fully explained to the patient, which included, but not limited to infection, bleeding, damage t o adjacent structures, anesthesia complication, choledocholithiasis, bile leak, pancreatitis, MA, and even . She also understands this may not relieve the symptoms. She might need more than one s urgical intervention. She understood, signed a consent. Description Of Procedure: The patient was brought to the operating room, placed in supine position. Anesthesia was done without complication. Abdominal area was prepped and draped in usual sterile fa shion. Marcaine 0.5% was injected for local anesthetic followed by sharp incision of the skin in the periumbilical region. Incision was carried down to fascia, which was opened under direct vision. P eritoneum was encountered, opened under direct vision. Vicryl #1 placed inside the fascia. Kamille t rocar was carefully introduced. Pneumoperitoneum was obtained. When we put the cameras in, we notic ed the omentum wrapped around the gallbladder, wrapped around the liver, and also adhesed into the an terior abdominal wall. Immediately, we knew that we going to deal with some adhesions, so we placed 5 mm trocars in the right upper quadrant in spaces that had no adhesions and then with the help of Bianca Loja, we were able to remove adhesions down to the point that we can see the gallbladder. It was d istended. It was large. It was inflamed. At that moment, I proceeded to place an Endo needle in th e center of the fundus of the gallbladder. We noticed the patient to have suppurative bile on it. A t that moment, we sent that for the fundus of the gallbladder, and then as we were sequent ially removing the adhesions down, we were able to see the infundibulum. That area once again is inf lamed. So, we will make sure that we protect the hepatic arteries and common bile duct at all time. Once that area completely defined and we saw the cystic duct and cystic artery and the connection be tween those and the gallbladder was clearly identified circumferentially, then I proceeded to ligate those by using at least 3 clips proximal, 1 clip distal, ligation in middle. Same was done with the cystic artery with small little branch also ligated. Hepatic arteries and common bile duct were prot ected at all times. The gallbladder was carefully removed from the liver with Bovie cauterizer and r emoved from abdominal cavity to an EndoCatch through the umbilical incision. The gallbladder was so large that we had to extend the umbilical incision at least double the size. Once we have the gallbl adder out, we proceeded to do profuse irrigation of the area and suction making sure the clips were i ntact. Due to the amount of disease in that area and some purulent discharge in that region, I proce eded to leave a LIZ drain in that area. We obtained complete hemostasis and then after that removed t he trocars under direct vision, deflated pneumoperitoneum, closed the fascia with #1 Vicryl. Irrigat ed subcutaneous tissue, closed with 3-0 chromic and then skin with staple. LIZ drain was connected to bulb suction and secured in place with 3-0 nylon. The patient tolerated the procedure well. Due to the lysis of adhesions area and also that severe cholecystitis with purulent the gallbladder, Tuan ramsay this patient should be admitted to the hospital for IV antibiotics and that is why we are there. She also is going to need some pain control. In the next 48 hours if she is afebrile and tolerating diet and we have full control of this infection, then she may be able to go home. HM/MODL Voice ID: [id number] Report ID: [id number]
== END 2023-05-15 14:50 | disposition home or self-care (01) ==
LOC: OR 06:59 → 2ND 10:53
PROVIDERS: ADMIT Surgery; ATTEND Surgery
PROC: 0FT44ZZ Resection of Gallbladder, Percutaneous Endoscopic Approach (ICD-10-PCS; principal; 2023-05-13 08:15)
DX: K80.00 Calculus of gallbladder with acute cholecystitis without obstruction (principal); R10.11 Right upper quadrant pain
CPT/HCPCS: 93005; 87070; 85025; 80048 ×2; 36415 ×2; 87205 ×2; 80076; 88304; 87075; 83690; 71046; 97161; 94010; 47562; A4216 ×2; J2704; J2710; J2001; C9113 ×2; J2250; J3010 ×2; J1100; J2270 ×2; J1170 ×7; J0694 ×7; J2405; G0378 ×5; J7120 ×2; J7030 ×5; G0379